=== PATIENT | male | born 1975 | race American Indian/Alaskan Native ===

== ENCOUNTER 2020-12-21 23:16 | Emergency (ER) | payer SELFPAY ==
[2020-12-21 23:30] VITALS: BP 121/69
[2020-12-21] MEDS ORDERED: predniSONE 20 MG TAB PO ONE (23:46)
[2020-12-21] MEDS ORDERED: GABAPENTIN 400 MG CAP PO ONE (23:46)
[2020-12-21] MEDS ORDERED: ACETAMINOPHEN 500 MG TAB PO ONE (23:47)
--- NOTE | 2020-12-21 23:53 | Emergency Department Report ---
ED Back Pain/Injury HPI - General Chief Complaint: Back Pain/Injury Stated Complaint: MUSCLE SPASMS LEFT LEG X 5DAYS Source: patient Limitations: No Limitations - History of Present Illness Initial Comments: Patient is a 45-year-old -Chinese male with no past medical history presents to the ED with complaint of acute onset persistent severe nontraumatic low back pain that radiates to the left hip and left leg for the past 5 days. Patient states that the pain has been constant, persistent and that despite taking [id number] ibuprofen, the pain has been persistent. Patient states that the pain radiates from his low back to his left leg and worse with movement. Patient denies dizziness, syncope, fall, hematuria, dysuria, testicular pain, urinary or bowel incontinence, saddle paresthesia, numbness and tingling or weakness of lower extremities bilaterally, fever and chills. MD Complaint: back pain (lower back pain), other (left hip and leg pain) -: Sudden, days(s) (5) Similar Symptoms Previously: No Place: home Radiation: left leg Severity: severe Severity scale (0 -10): 8 Quality: sharp, aching Consistency: constant Improves With: none Worsens With: movement, walking Context: while lifting Associated Symptoms: denies other symptoms. denies: weakness, chest pain, numbness, difficulty walking, cough, difficulty urinating, diaphoresis, fever/chills, constipation, headaches, abdominal pain, loss of appetite, malaise, nausea/vomiting, rash, seizure, shortness of breath, syncope - Related Data Previous Rx's Medication Instructions Recorded Last Taken Type Baclofen 20 mg PO Q12H PRN #20 tablet 12/21/20 Unknown Rx Gabapentin 300 mg PO Q12H PRN #30 capsule 12/21/20 Unknown Rx Ibuprofen [Motrin] 600 mg PO Q8H PRN #30 tablet 12/21/20 Unknown Rx predniSONE [Deltasone] 60 mg PO QDAY #15 tab 12/21/20 Unknown Rx Allergies Allergy/AdvReac Type Severity Reaction Status Date / Time No Known Allergies Allergy Unverified 12/21/20 23:28 ED Review of Systems ROS: Stated complaint: MUSCLE SPASMS LEFT LEG X 5DAYS Other details as noted in HPI Constitutional: denies: chills, fever Eyes: denies: eye pain, eye discharge, vision change ENT: denies: ear pain, throat pain Respiratory: denies: cough, shortness of breath, wheezing Cardiovascular: denies: chest pain, palpitations Endocrine: no symptoms reported Gastrointestinal: denies: abdominal pain, nausea, vomiting, diarrhea Genitourinary: denies: urgency, dysuria Musculoskeletal: back pain (lower back pain), arthralgia (left hip and leg patti n). denies: joint swelling Skin: denies: rash, lesions Neurological: denies: headache, weakness, paresthesias Psychiatric: denies: anxiety, depression Hematological/Lymphatic: denies: easy bleeding, easy bruising ED Past Medical Hx - Past Medical History Previous Medical History?: No - Surgical History Past Surgical History?: No - Social History Smoking Status: Never Smoker - Medications Home Medications: Home Medications Medication Instructions Recorded Confirmed Last Taken Type Baclofen 20 mg PO Q12H PRN #20 tablet 12/21/20 Unknown Rx Gabapentin 300 mg PO Q12H PRN #30 capsule 12/21/20 Unknown Rx Ibuprofen [Motrin] 600 mg PO Q8H PRN #30 tablet 12/21/20 Unknown Rx predniSONE [Deltasone] 60 mg PO QDAY #15 tab 12/21/20 Unknown Rx ED Physical Exam - General Limitations: No Limitations General appearance: alert, in no apparent distress - Head Head exam: Present: atraumatic, normocephalic, normal inspection - Eye Eye exam: Present: normal appearance, PERRL, EOMI Pupils: Present: normal accommodation - ENT ENT exam: Present: normal exam, normal orophraynx, mucous membranes moist, TM's normal bilaterally, normal external ear exam - Neck Neck exam: Present: normal inspection, full ROM - Respiratory Respiratory exam: Present: normal lung sounds bilaterally. Absent: respiratory distress, wheezes, rales, rhonchi, stridor, chest wall tenderness, accessory muscle use, decreased breath sounds, prolonged expiratory - Cardiovascular Cardiovascular Exam: Present: normal rhythm, bradycardia, normal heart sounds. Absent: systolic murmur, diastolic murmur, rubs, gallop - GI/Abdominal GI/Abdominal exam: Present: soft, normal bowel sounds. Absent: distended, tenderness, guarding, rebound, hyperactive bowel sounds, hypoactive bowel sounds, organomegaly - Extremities Exam Extremities exam: Present: normal inspection, full ROM, tenderness (Palpable lef t hip tenderness), normal capillary refill - Back Exam Back exam: Present: normal inspection, full ROM, tenderness (Palpable lumbosacral paraspinal musculoskeletal tenderness), muscle spasm, paraspinal tenderness. Absent: CVA tenderness (R), CVA tenderness (L), vertebral tenderness, rash noted - Neurological Exam Neurological exam: Present: alert, oriented X3, CN II-XII intact, normal gait, reflexes normal - Psychiatric Psychiatric exam: Present: normal affect, normal mood - Skin Skin exam: Present: warm, dry, intact, normal color. Absent: rash ED Course Vital Signs 12/21/20 23:28 Temperature 98.4 F Pulse Rate 53 L Respiratory 16 Rate Blood Pressure 121/69 O2 Sat by Pulse 97 Oximetry ED Medical Decision Making - Medical Decision Making This is a 45-year-old -Chinese male with no past medical history presents to the ED with complaint of acute onset persistent severe nontraumatic low back pain that radiates to the left hip and left leg for the past 5 days. Patient states that the pain has been constant, persistent and that despite taking [id number] ibuprofen, the pain has been persistent. Patient states that the pain radiates from his low back to his left leg and worse with movement. In the ED, patient is alert and oriented x3 and is not in any distress with normal vital signs. Based on the history and physical exam findings, patient symptoms are likely due to acute low back pain with sciatica or muscle spasm of lower back. Patient was treated for pain in the ED and d ischarged home on pain medications and muscle relaxants, and was advised to follow-up with his primary care physician in 5 to 7 days for reevaluation. Patient was advised return to the ED immediately if symptoms get worse. - Differential Diagnosis Muscle spasm; muscle strain; sciatica; lumbago Critical care attestation.: If time is entered above; I have spent that time in minutes in the direct care of this critically ill patient, excluding procedure time. ED Disposition Clinical Impression: Strain of muscle, fascia and tendon of lower back, initial encounter, Spasm of muscle of lower back Acute low back pain with left-sided sciatica Qualifiers: Back pain laterality: left Qualified Code(s): M54.42 - Lumbago with sciatica, left side Disposition: - TO HOME OR SELFCARE Is pt being admited?: No Does the pt Need Aspirin: No Condition: Stable Instructions: Muscle Cramps and Spasms, [id number], Sciatica, [id number], Low Back Sprain or Strain Rehab-SportsMed, Lumbosacral Strain Additional Instructions: Your symptoms are likely due to muscle spasm of lower back or sciatica due to an impingement of sciatic nerve in your lower back. Therefore take medications with food, drink plenty of fluids, follow-up with your primary care physician in 5 to 7 days for reevaluation. Return to the ED immediately if symptoms get worse. Prescriptions: Baclofen 20 mg PO Q12H PRN #20 tablet PRN Reason: Muscle Spasm predniSONE [Deltasone] 60 mg PO QDAY #15 tab Gabapentin 300 mg PO Q12H PRN #30 capsule PRN Reason: neuropathy Ibuprofen [Motrin] 600 mg PO Q8H PRN #30 tablet PRN Reason: Pain Referrals: [facility] [Provider Group] - 3-5 Days Time of Disposition: 23:56 Print Language: SAMOAN
== END 2020-12-22 00:39 | disposition home or self-care (01) ==
LOC: ED 23:16
DX: S39.012A Strain of muscle, fascia and tendon of lower back, initial encounter (principal); M54.42 Lumbago with sciatica, left side; M62.830 Muscle spasm of back; Z79.899 Other long term (current) drug therapy; X58.XXXA Exposure to other specified factors, initial encounter; Y93.89 Activity, other specified; Y92.009 Unspecified place in unspecified non-institutional (private) residence as the place of occurrence of the external cause; Y99.8 Other external cause status
CPT/HCPCS: 99282; J7512